=== PATIENT | female | born 2000 | race Hispanic/Latino ===

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

== ENCOUNTER 2019-03-27 10:50 | Emergency (ER) | payer OTHER ==
[~2019-03-27] VITALS: Ht 162.6 cm; Wt 60.0 kg
[2019-03-27 11:35] LABS: HEMATOCRIT 42.9 % (37.0-47.0); HEMOGLOBIN 14.2 g/dl (12.0-16.0); IMMATURE GRANULOCYTES 0.3 % (0.0-5.0); MEAN CELL VOLUME 87.4 fL CALC (80.0-100.0); MEAN CORPUSCULAR HGB 28.9 pG CALC (26.0-32.0); MEAN CORPUSCULAR HGB CONC 33.1 g/L CALC (32.0-36.0); NEUT# 3.66 thou/uL (2.00-7.15); RED BLOOD COUNT 4.91 mill/uL (4.20-5.60); RED CELL DISTRI WIDTH 12.5 % (11.5-15.5)
[2019-03-27 11:56] LABS: ALBUMIN 5.2 g/dL (3.2-5.0); ALKALINE PHOSPHATASE 73 u/l (38-126); ANION GAP 16 (6-22 (CALC)); BUN 7 mg/dL (7-17); BUN/CREATININE RATIO 9 (12-20 (CALC)); CARBON DIOXIDE 22 mmol/l (22-30); CHLORIDE 107 mmol/l (95-108); CREATININE 0.8 mg/dL (0.5-1.0); GFR > 60 ML/MIN (>=60 (CALC)); GFR FOR AFR.AMER. > 60 ML/MIN (>=60 (CALC)); POTASSIUM 3.7 mmol/l (3.5-5.1); SGOT/AST 21 u/l (14-36); SODIUM 141 mmol/l (137-146); TOTAL PROTEIN 8.3 g/dL (6.3-8.2)
[2019-03-27 11:58] LABS: BILIRUBIN, TOTAL 0.7 mg/dL (0.0-1.4)
[2019-03-27 12:07] LABS: MYOGLOBIN 28 ng/mL (0 - 62)
[2019-03-27] MEDS ORDERED: VENTOLIN HFA IN (12:43)
[2019-03-27] MEDS ORDERED: PREDNISONE50 MG PO (12:43)
[2019-03-27] MEDS ORDERED: ADVAIR DISKU IN (12:43)
[2019-03-27 12:53] VITALS: BP 140/86
== END 2019-03-27 13:09 | disposition home or self-care (01) ==
LOC: ED 10:50
PROVIDERS: Family Medicine
DX: J98.01 Acute bronchospasm (principal); F17.210 Nicotine dependence, cigarettes, uncomplicated; R06.02 Shortness of breath; R05 Cough; R00.2 Palpitations

== ENCOUNTER 2022-07-19 21:46 | Emergency (ER) | payer OTHER ==
[~2022-07-19] VITALS: Ht 165.1 cm; Wt 65.0 kg
[~2022-07-19 21:46] MED LIST changes: +ADVAIR DISKU IN; +PREDNISONE50 MG PO; +VENTOLIN HFA IN
[2022-07-19] MEDS ORDERED: LORTAB 1010 MG PO (22:59)
[2022-07-19] MEDS ORDERED: AMOXICILLIN500 MG PO (22:59)
[2022-07-19 23:16] VITALS: BP 114/77
== END 2022-07-19 23:15 | disposition home or self-care (01) ==
LOC: ED 21:46
DX: K04.7 Periapical abscess without sinus (principal); S02.5XXA Fracture of tooth (traumatic), initial encounter for closed fracture; F17.200 Nicotine dependence, unspecified, uncomplicated; X58.XXXA Exposure to other specified factors, initial encounter

== ENCOUNTER 2022-09-10 14:07 | Emergency (ER) | payer OTHER ==
[~2022-09-10] VITALS: Ht 165.1 cm; Wt 61.3 kg
[~2022-09-10 14:07] MED LIST changes: +LORTAB 1010 MG PO
[2022-09-10] MEDS ORDERED: CEPHALEXIN500 MG PO (14:18)
[2022-09-10 16:00] VITALS: BP 120/78
== END 2022-09-10 16:30 | disposition home or self-care (01) ==
LOC: ED 14:07
DX: S61.216A Laceration without foreign body of right little finger without damage to nail, initial encounter (principal); F17.200 Nicotine dependence, unspecified, uncomplicated; W26.8XXA Contact with other sharp object(s), not elsewhere classified, initial encounter; Y93.G1 Activity, food preparation and clean up; Y92.000 Kitchen of unspecified non-institutional (private) residence as the place of occurrence of the external cause

== ENCOUNTER 2022-10-26 12:27 | Emergency (ER) | payer OTHER ==
[~2022-10-26] VITALS: Ht 165.1 cm; Wt 54.0 kg
[2022-10-26 13:10] LABS: BASO% 0.3 % (0-3); EOS% 1.2 % (0-8); HEMATOCRIT 42.1 % (37.0-47.0); HEMOGLOBIN 13.1 g/dl (12.0-16.0); IMMATURE GRANULOCYTES 0.2 % (0.0-5.0); LYMPH% 27.7 % (15-41); MEAN CELL VOLUME 90.3 fL CALC (80.0-100.0); MEAN CORPUSCULAR HGB 28.1 pG CALC (26.0-32.0); MEAN CORPUSCULAR HGB CONC 31.1 g/dL CAL (32.0-36.0); MONO% 4.3 % (2-13); NEUT# 3.83 thou/uL (2.00-7.15); NEUT% 66.3 % (42-76); RED BLOOD COUNT 4.66 mill/uL (4.20-5.60)
[2022-10-26 13:24] LABS: MAGNESIUM 1.8 mg/dL (1.6-2.3)
[2022-10-26 13:25] LABS: ALBUMIN 5.4 g/dL (3.2-5.0); ALKALINE PHOSPHATASE 82 u/l (38-126); ANION GAP 18 (6-22 (CALC)); BILIRUBIN, TOTAL 0.5 mg/dL (0.02-1.3); BUN 6 mg/dL (7-17); BUN/CREATININE RATIO 9 (12-20 (CALC)); CARBON DIOXIDE 24 mmol/l (22-30); CHLORIDE 106 mmol/l (95-108); CREATININE 0.7 mg/dL (0.5-1.0); GFR FOR AFR.AMER. > 60 ML/MIN (>=60 (CALC)); GFR OTHER RACES > 60 ML/MIN (>=60 (CALC)); POTASSIUM 3.8 mmol/l (3.5-5.1); SGOT/AST 20 u/l (14-36); SODIUM 143 mmol/l (137-146); TOTAL PROTEIN 8.5 g/dL (6.3-8.2)
[2022-10-26 15:32] LABS: URINE BILIRUBIN - DIPSTICK NEGATIVE (NEGATIVE); URINE BLOOD DIPSTICK LARGE (NEGATIVE); URINE COLOR YELLOW; URINE GLUCOSE - DIPSTICK NEGATIVE (NEGATIVE); URINE KETONE NEGATIVE (NEGATIVE); URINE LEUK ESTERASE NEGATIVE (NEGATIVE); URINE PROTEIN - DIPSTICK NEGATIVE (NEG-TRACE); URINE UROBILINOGEN - DIPSTICK 0.2 E.U./dL (0.2)
[2022-10-26 15:34] LABS: URINE NITRITE - DIPSTICK NEGATIVE (Negative)
[2022-10-26 15:41] LABS: URINE MUCUS FEW hpf (NONE-FEW); URINE RBC 25-50 RBC/hpf (0-5); URINE SQUAMOUS EPITHELIAL CELL FEW EPI/hpf (0-FEW)
[2022-10-26] MEDS ORDERED: NAPROXEN500 MG PO (16:17)
[2022-10-26 16:39] VITALS: BP 121/82
== END 2022-10-26 16:46 | disposition home or self-care (01) ==
LOC: ED 12:27
PROVIDERS: Nurse Practitioner
DX: R07.81 Pleurodynia (principal); E86.0 Dehydration; F17.200 Nicotine dependence, unspecified, uncomplicated

== ENCOUNTER 2024-01-14 14:17 | Emergency (ER) | payer SELFPAY ==
[~2024-01-14] VITALS: Ht 165.1 cm; Wt 56.0 kg
[~2024-01-14 14:17] MED LIST changes: +NAPROXEN500 MG PO; +ZPAK PO; +ZYRTEC10 MG PO
[2024-01-14 14:30] VITALS: BP 119/69
[2024-01-14] MEDS ORDERED: AMOX/K CLAV875 M1 PO (14:39)
[2024-01-14 14:45] VITALS: BP 137/90
[2024-01-14 15:34] VITALS: BP 119/69
== END 2024-01-14 15:35 | disposition home or self-care (01) | DRG 605 ==
LOC: ED 14:17
DX: S71.152A Open bite, left thigh, initial encounter (principal); W54.0XXA Bitten by dog, initial encounter; Y93.89 Activity, other specified; Y92.009 Unspecified place in unspecified non-institutional (private) residence as the place of occurrence of the external cause; Y99.0 Civilian activity done for income or pay